=== PATIENT | female | born 1995 | race Caucasian/White ===

== ENCOUNTER 2023-06-11 02:47 | Emergency (ER) | payer SELFPAY ==
[~2023-06-11] VITALS: Ht 152.4 cm; Wt 54.4 kg
[2023-06-11 02:47] VITALS: BP 120/78; PULSE 119; RESP 14; TEMP 96.8; O2SAT 98
== END 2023-06-11 03:29 | disposition home or self-care (01) ==
LOC: MED 02:47
DX: Z02.89 Encounter for other administrative examinations (principal); V89.2XXA Person injured in unspecified motor-vehicle accident, traffic, initial encounter; Y93.89 Activity, other specified; Y92.410 Unspecified street and highway as the place of occurrence of the external cause; Y99.8 Other external cause status
CPT/HCPCS: 71045; 99283; Q0092